=== PATIENT | male | born 1975 | race Caucasian/White ===

== ENCOUNTER 2024-11-20 08:54 | Outpatient (AMB) | payer BC, SELFPAY ==
--- NOTE | 2024-11-20 08:57 | MHC.PC.OV ---
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 He is transferring from [facility]. He reports a significant past medical history of high cholesterol, elevated iron. Heme: The elevated iron was thought to be partially related to a supplement that he was taking. He never had this rechecked. Unsure of any family history of hemochromatosis. CV: Blood pressure today in the office is 118/76. History of mildly elevated cholesterol. Psych: Has a sometimes staying asleep and finds himself waking up multiple times. No witnessed sleep apnea. He does not snore. He thinks it is related to his change in his sleep cycle. He used to work 3rd shift and was on-call a lot and now he works a normal day shift. Colonoscopy: never had PSA: overdue Family history: father had AML, Paternal grandfather colon ca, PFSH Medical History Inguinal hernia Family history of colon cancer Biceps tendonitis Allergic rhinitis Alcohol use Surgical History (Updated 11/20/24 @ 09:08 by Crissy Guerrero CMA) H/O hernia repair Family History (Updated 11/20/24 @ 09:08 by Crissy Guerrero CMA) Father Leukemia Paternal Grandfather Colon cancer Social History Housing: House Alcohol intake: current Patient Tobacco Use Status: Never used Tobacco e-Cigarette/Vaping Use: Never Used Second Hand Smoke Exposure: No Substance Use Type: Marijuana service: No Current occupational status: employed Current occupation: manager transportation for [employer] Current occupational exposures/hazards: No Cognitive needs: No Hearing needs: No Vision needs: No Questionnaire PHQ-9 Over the last 2 weeks, how often have you been bothered by any of the following problems? 1. Little interest or pleasure in doing things: not at all 2. Feeling down, depressed, or hopeless: not at all 3. Trouble falling or staying asleep, or sleeping too much: not at all 4. Feeling tired or having little energy: not at all 5. Poor appetite or overeating: not at all 6. Feeling bad about yourself - or that you are a failure or have let yourself or your family down: not at all 7. Trouble concentrating on things, such as reading the newspaper or watching television: not at all 8. Moving or speaking so slowly that other people could have noticed. Or the opposite - being so fidgety or restless that you have been moving around a lot more than usual: not at all 9. Thoughts that you would be better off or of hurting yourself in some way: not at all Total score: 0 Depression Screening Interpretation: Negative Depression Screening Done: Yes 94130 - PHQ-9 Billing: Yes Source: Developed by Drs. Juan Renee, Vicky Cabrales, Yunior Pyle and colleagues, with an educational zachery from [employer]. Thrive Questionnaire Date Thrive assessed: 11/13/24 I am a: Patient What is your living situation today?: I have a steady place to live Within the past 12 months, did the food you bought not last and you didn't have the money to get more?: Never true Within the past 12 months, did you worry whether your food would run out before you got money to buy more?: Never true Do you have trouble paying for medicines?: No Do you have trouble getting transportation to medical appointments?: No Do you have trouble paying your heating and electricity bill?: No Do you have trouble taking care of your child, family member or friend?: No Do you have trouble with day-to-day activities such as bathing, preparing meals, shopping, managing finances, etc.?: No Are you currently unemployed and looking for a job?: No Are you interested in more education?: No Please select the resources that you would like help with: None Currently or been in a relationship where the following occur: No concerns reported THRIVE Score: 0 AUDIT C Alcohol Use Questionnaire (AUDIT-C) 1. How often do you have a drink containing alcohol?: 2-3 times a week 2. How many drinks containing alcohol do you have on a typical day when you are drinking?: 5 or 6 3. How often do you have six or more drinks on one occasion?: Monthly Total Score: 7 KALI-7 AMB Questionnaire KALI-7 Date KALI - 7 assessed: 11/20/24 Feeling nervous, anxious, or on edge: 0 = Not at all Not being able to stop or control worryin = Not at all Worrying too much about different things: 0 = Not at all Trouble relaxin = Not at all Being so restless that it is hard to sit still: 0 = Not at all Becoming easily annoyed or irritable: 0 = Not at all Feeling afraid as if something awful might happen: 0 = Not at all Total KALI-7 score (0-4 normal; 5-9 mild; 10-14 moderate; 15-21 severe): 0 Source: Developed by Drs. Juan Renee, Vicky Cabrales, Yunior Pyle and colleagues, with an educational zachery from [employer]. KALI-7 Assessment Billing KALI-7 Assessment Tool: KALI-7 Assessment 13752 Physical exam (Primary Care) Vital Signs: Last Vital Signs Temp 98.2 F 11/20/24 09:00 Pulse 71 11/20/24 09:00 Resp 12 11/20/24 09:00 BP 118/76 11/20/24 09:00 Pulse Ox 97 11/20/24 09:00 Oxygen Delivery Method Room Air 11/20/24 09:00 BMI result Body Mass Index 24.1 Tobacco/Smoking Status: Tobacco use Status Tobacco use date assessed 11/20/24 11/20/24 09:03 Patient Tobacco Use Status Never used Tobacco 11/20/24 09:03 e-Cigarette/Vaping Use Never Used 11/20/24 09:03 PHQ-9: PHQ-9 Score PHQ-9: Total score 0 11/20/24 08:59 Depression Screening Interpretation: Negative Thrive Assessment: Date of Thrive Assessment Date Thrive assessed 11/13/24 11/20/24 08:59 Currently or been in a relationship where the following occur: No concerns reported Const Orientation/consciousness: patient oriented x3 HENMT Ears: hearing grossly normal bilaterally and TM's normal bilaterally General nose exam: No nasal polyps present Face and sinus: Yes sinuses nontender Mouth: Normal oral and palatal mucosa present Eyes Pupils: Equal, round and reactive pupils present EOM: EOMs intact bilaterally Neck Neck: Yes full ROM and Yes no lymphadenopathy Thyroid: Thyroid normal Chest Chest palpation & inspection: normal inspection of the chest Resp Auscultation: clear to auscultation bilaterally Cardio Rate: regular rate Rhythm: regular rhythm Heart sounds: S1 normal heart sound present and S2 normal heart sound present Peripheral pulses: Peripheral pulses 2+ throughout GI Other: Soft, nontender Auscultation: normal bowel sounds Rectal Exam - Male: Yes deferred General: Yes no CVA tenderness Back/Spine/Pelvis Other: Nontender Back: no CVA tenderness Skin General skin exam: no rashes or lesions noted Neuro General: patient oriented x3, gait normal, CN's II-XI intact bilaterally and deep tendon reflexes 2+ bilaterally Cranial nerves: Yes Equal, round and reactive pupils present Motor exam (neuro): 5/5 motor strength present throughout Sensory Exam: double simultaneous stimulation for sensation normal Coordination: [id number] test normal and Romberg test negative Extrem General: Yes normal to inspection and Yes full ROM Psych Affect: normal affect Attitude: cooperative Thought process: Normal thought process present Thought content: Normal thought content present Insight: Good insight present (Psych) Judgement: Good judgement present (Psych) Coding Level of Care Code New Pt Level 3 (43610) New Pt Prev Care 40-64y(31291) Diagnoses Routine general medical examination at a health care facility Z00.00 Iron excess E83.19 Dyslipidemia E78.5 Insomnia G47.00 Additional Codes PHQ-9 - 32823 - PHQ-9 Billing: Yes ([id number]) KALI-7 Assessment Billing - KALI-7 Assessment Tool: KALI-7 Assessment 61626 ([id number]) Assessment & Plan Assessment & Plan (1) Routine general medical examination at a health care facility: Code(s): Z00.00 - Encounter for general adult medical examination without abnormal findings Plan: Health maintenance reviewed Labs ordered Referral to GI for colonoscopy (2) Iron excess: Code(s): E83.19 - Other disorders of iron metabolism Category: Medical Plan: Iron studies ordered (3) Dyslipidemia: Code(s): E78.5 - Hyperlipidemia, unspecified Category: Medical Plan: He has made diet changes so we will check lipids. (4) Insomnia: Code(s): G47.00 - Insomnia, unspecified Category: Medical Plan: We will try trazodone. Discussed risks and benefits and adverse effects of this medication. We will do a short term follow up to reassess Orders: Orders IRON PROFILE Today E78.5 - Hyperlipidemia, unspecified, E83.19 - Other disorders of iron metabolism, G47.00 - Insomnia, unspecified, Z01.89 - Encounter for other specified special examinations Ferritin Today E78.5 - Hyperlipidemia, unspecified, E83.19 - Other disorders of iron metabolism, G47.00 - Insomnia, unspecified, Z01.89 - Encounter for other specified special examinations Lipid Panel Today E78.5 - Hyperlipidemia, unspecified, E83.19 - Other disorders of iron metabolism, G47.00 - Insomnia, unspecified, Z01.89 - Encounter for other specified special examinations Microalbumin, Random (w Creat) Today E78.5 - Hyperlipidemia, unspecified, E83.19 - Other disorders of iron metabolism, G47.00 - Insomnia, unspecified, Z01.89 - Encounter for other specified special examinations UA CC w/rflx Micro + Cult Today E78.5 - Hyperlipidemia, unspecified, E83.19 - Other disorders of iron metabolism, G47.00 - Insomnia, unspecified, R30.0 - Dysuria, Z01.89 - Encounter for other specified special examinations Complete Blood Count Auto Diff Today E78.5 - Hyperlipidemia, unspecified, E83.19 - Other disorders of iron metabolism, G47.00 - Insomnia, unspecified, Z01.89 - Encounter for other specified special examinations Comprehensive [place]. Panel Fast Today E78.5 - Hyperlipidemia, unspecified, E83.19 - Other disorders of iron metabolism, G47.00 - Insomnia, unspecified, Z01.89 - Encounter for other specified special examinations TSH reflex Free T4 Today E78.5 - Hyperlipidemia, unspecified, E83.19 - Other disorders of iron metabolism, G47.00 - Insomnia, unspecified, Z01.89 - Encounter for other specified special examinations Prostate Specific Antigen Scr Today E78.5 - Hyperlipidemia, unspecified, E83.19 - Other disorders of iron metabolism, G47.00 - Insomnia, unspecified, Z01.89 - Encounter for other specified special examinations Referrals Gastroenterology Referral Z12.11 - Encounter for screening for malignant neoplasm of colon Medications: New trazodone 50 mg PO BEDTIME PRN 30 tabs 3RF sleep
[2024-11-20 09:00] VITALS: BP 118/76; PULSE 71; RESP 12; TEMP 36.8; O2SAT 97; BMI 24.1
== END 2024-11-20 09:33 | disposition home or self-care (01) ==
LOC: HO.HMCFM 08:55
PROVIDERS: PCP Physician Assistant; Visit Provider Physician Assistant
DX: Z00.00 Encounter for general adult medical examination without abnormal findings (principal); E83.19 Other disorders of iron metabolism; E78.5 Hyperlipidemia, unspecified; G47.00 Insomnia, unspecified

== ENCOUNTER → 2024-11-20 08:54 | Outpatient (BNVA) | payer BC, SELFPAY | PROVIDERS: PCP Physician Assistant; Visit Provider Physician Assistant | DX: Z00.00 Encounter for general adult medical examination without abnormal findings (principal); Z76.89 Persons encountering health services in other specified circumstances; E83.19 Other disorders of iron metabolism; E78.5 Hyperlipidemia, unspecified; G47.00 Insomnia, unspecified; Z13.31 Encounter for screening for depression; Z13.39 Encounter for screening examination for other mental health and behavioral disorders | CPT/HCPCS: 96127 ==

== ENCOUNTER 2024-12-16 07:58 | Outpatient (REF) | payer BC, SELFPAY ==
[2024-12-16 11:10] LABS: MANUAL DIFF FLAG NO
[2024-12-16 11:15] LABS: Hematocrit 43.7 % (42.0-52.0); Hemoglobin 14.2 g/dl (14.0-18.0); Imm Gran Abs Auto 0.00 X10*3/uL (0.00-0.03); Imm Gran Pct Auto 0.0 % (0.0-0.4); Lymphocytes Absolute Auto 1.6 X10*3/uL (1.2-4.9); Mean Corpuscular HGB Conc 32.5 g/dl (31.0-36.0); Mean Corpuscular Hemoglobin 30.4 pg (27.0-33.0); Mean Corpuscular Volume 93.6 fL (80.0-98.0); NRBC Abs Auto 0.000 X10*3/uL (0.0-0.012); NRBC Pct Auto 0.0 /100WBC (0.0-0.2); Platelet Count 306 X10*3/uL (160-400); Red Blood Count 4.67 X10*6/uL (4.60-5.80); White Blood Count 5.3 X10*3/uL (4.8-10.8)
[2024-12-16 12:01] LABS: Alanine Aminotransferase 26 U/L (0-40); Albumin Level 4.6 g/dL (3.5-5.0); Alkaline Phosphatase 54 U/L (39-117); Anion Gap 12 (12-20); Aspartate Amino Transferase 33 U/L (5-37); Blood Urea Nitrogen 17 mg/dL (9-16); Calcium 9.0 mg/dL (8.4-10.2); Carbon Dioxide 28 mmol/L (22-29); Chloride 106 mmol/L (96-108); Cholesterol 197 mg/dL (<200); Estimated Glomerular Filt Rate > 60; Ferritin 310 ng/mL (20-250); HDL Cholesterol 71 mg/dL (>40); Iron 165 mcg/dL (45-160); Percent Iron Saturation 68 % (15-50); Potassium 4.4 mmol/L (3.3-5.1); Sodium 142 mmol/L (135-145); Total Iron Binding Capacity 244 mcg/dL (228-428); Total Protein 6.9 g/dL (6.5-8.0); Triglycerides 46 mg/dL (<150); Unsaturated Iron Binding 79 ug/dL
[2024-12-16 14:29] LABS: Appearance Urine Clear; Glucose Urine UA Negative (Negative); PH 6.0 (5.0-9.0); Specific Gravity - Urine 1.020 (1.005-1.025)
== END 2024-12-16 07:59 | disposition home or self-care (01) ==
LOC: HO.WFDLDS 07:58
PROVIDERS: Visit Provider Physician Assistant
DX: Z12.5 Encounter for screening for malignant neoplasm of prostate (principal); Z01.89 Encounter for other specified special examinations; R30.0 Dysuria; E83.19 Other disorders of iron metabolism; E78.5 Hyperlipidemia, unspecified; G47.00 Insomnia, unspecified
CPT/HCPCS: 36415; 80053; 80061; 81003; 82043; 82570; 82728; 83540; 84153; 84443; 85025

== ENCOUNTER 2025-02-03 08:04 | Outpatient (REF) | payer BC, SELFPAY | END 2025-02-03 08:05 | disposition home or self-care (01) | LOC: HO.WFDLDS 08:04 | PROVIDERS: Visit Provider Physician Assistant | DX: Z13.89 Encounter for screening for other disorder (principal) | CPT/HCPCS: 36415 ==

== ENCOUNTER 2025-02-26 08:39 | Outpatient (AMB) | payer BC, SELFPAY ==
[2025-02-26 08:49] VITALS: BP 114/82; PULSE 81; TEMP 36.6; O2SAT 97; BMI 24.5
--- NOTE | 2025-02-26 08:49 | MHC.PC.OV ---
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 He reports a significant past medical history of high cholesterol, elevated iron. Heme: His last iron and ferritin was elevated. He does drink regularly. His hemochromatosis testing was negative. Denies feeling sick around the time of the labs. CV: Blood pressure today in the office is 114/82. History of mildly elevated cholesterol. Psych: He felt that the trazodone was helpful but it caused GI upset and pain. MSK: Was playing football around [facility] when he jammed his right middle finger. He states that he waited a few weeks and went to urgent care and was told that he had a mallet finger. He states that it was stuck in a contracted almost position. He has put a brace on and for the last 2 weeks has been using the brace consistently. He states that he had negative imaging. He states that the finger so looks a little swollen but does not have any pain. He is right-handed. Colonoscopy: never had-was referred PSA: WNL Family history: father had AML, Paternal grandfather colon ca, PFSH Medical History Inguinal hernia Family history of colon cancer Biceps tendonitis Allergic rhinitis Alcohol use Surgical History H/O hernia repair Family History Father Leukemia Paternal Grandfather Colon cancer Social History (Updated 02/26/25 @ 08:51 by Crissy Guerrero CMA) Housing: House Alcohol intake: current Patient Tobacco Use Status: Never used Tobacco e-Cigarette/Vaping Use: Never Used Second Hand Smoke Exposure: No Substance Use Type: Marijuana service: No Current occupational status: employed Current occupation: transportation maintenance operator for [employer] Current occupational exposures/hazards: No Cognitive needs: No Hearing needs: No Vision needs: No Questionnaire Thrive Questionnaire Date Thrive assessed: 11/13/24 I am a: Patient What is your living situation today?: I have a steady place to live Within the past 12 months, did the food you bought not last and you didn't have the money to get more?: Never true Within the past 12 months, did you worry whether your food would run out before you got money to buy more?: Never true Do you have trouble paying for medicines?: No Do you have trouble getting transportation to medical appointments?: No Do you have trouble paying your heating and electricity bill?: No Do you have trouble taking care of your child, family member or friend?: No Do you have trouble with day-to-day activities such as bathing, preparing meals, shopping, managing finances, etc.?: No Are you currently unemployed and looking for a job?: No Are you interested in more education?: No Currently or been in a relationship where the following occur: No concerns reported THRIVE Score: 0 AUDIT C Alcohol Use Questionnaire (AUDIT-C) 1. How often do you have a drink containing alcohol?: 2-3 times a week 2. How many drinks containing alcohol do you have on a typical day when you are drinking?: 1 or 2 3. How often do you have six or more drinks on one occasion?: Never Total Score: 3 KALI-7 AMB Questionnaire KALI-7 Date KALI - 7 assessed: 11/20/24 Source: Developed by Drs. Juan Renee, Vicky Cabrales, Yunior Pyle and colleagues, with an educational zachery from [employer]. Physical exam (Primary Care) Vital Signs: Last Vital Signs Temp 97.8 F 02/26/25 08:49 Pulse 81 02/26/25 08:49 BP 114/82 02/26/25 08:49 Pulse Ox 97 02/26/25 08:49 Oxygen Delivery Method Room Air 02/26/25 08:49 BMI result Body Mass Index 24.5 Tobacco/Smoking Status: Tobacco use Status Tobacco use date assessed 02/26/25 02/26/25 08:51 Patient Tobacco Use Status Never used Tobacco 02/26/25 08:51 e-Cigarette/Vaping Use Never Used 02/26/25 08:51 Thrive Assessment: Date of Thrive Assessment Date Thrive assessed 11/13/24 02/26/25 08:51 Currently or been in a relationship where the following occur: No concerns reported Const Orientation/consciousness: patient oriented x3 HENMT Ears: hearing grossly normal bilaterally Neck Thyroid: Thyroid normal Lymphatic: no lymphadenopathy noted Resp Auscultation: clear to auscultation bilaterally Cardio Rate: regular rate Rhythm: regular rhythm Heart sounds: S1 normal heart sound present and S2 normal heart sound present Skin General skin exam: no rashes or lesions noted Neuro General: patient oriented x3, gait normal and no focal motor deficits Coding Level of Care Code Est Pt Level 4 (64986) Add On Problem Visit Only Diagnoses Iron excess E83.19 Dyslipidemia E78.5 Insomnia G47.00 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 We will recheck after he has stopped drinking for a few weeks. (2) Dyslipidemia: Code(s): E78.5 - Hyperlipidemia, unspecified Category: Medical Plan: Continue controlling this with diet (3) Insomnia: Code(s): G47.00 - Insomnia, unspecified Category: Medical Plan: We will try hydroxyzine. Discussed risks and benefits and adverse effects of this medication. (4) Mallet deformity of right middle finger: Code(s): M20.011 - Mallet finger of right finger(s) Category: Medical Plan: Referral to hand surgery for consultation Orders: Orders Complete Blood Count Auto Diff Today E83.19 - Other disorders of iron metabolism, G47.00 - Insomnia, unspecified IRON PROFILE Today E83.19 - Other disorders of iron metabolism, G47.00 - Insomnia, unspecified Vitamin B12 and Folate Today E83.19 - Other disorders of iron metabolism, G47.00 - Insomnia, unspecified Ferritin Today E83.19 - Other disorders of iron metabolism, G47.00 - Insomnia, unspecified Referrals Hand Surgery Referral M20.011 - Mallet finger of right finger(s) Medications: New hydroxyzine HCl 25 mg PO BEDTIME 90 tabs 0RF
== END 2025-02-26 09:32 | disposition home or self-care (01) ==
LOC: HO.HMCFM 08:40
PROVIDERS: PCP Physician Assistant; Visit Provider Physician Assistant
DX: E83.19 Other disorders of iron metabolism (principal); E78.5 Hyperlipidemia, unspecified; G47.00 Insomnia, unspecified; M20.011 Mallet finger of right finger(s)